=== PATIENT | male | born 1965 | race Caucasian/White ===

== ENCOUNTER 2018-07-23 17:03 | Emergency (ER) | payer OTHER ==
[~2018-07-23] VITALS: Ht 170.2 cm; Wt 69.4 kg
[2018-07-23 17:08] VITALS: Ht 170.2 cm; Wt 69.4 kg
[2018-07-23 18:52] LABS: BASOPHIL % 0.9 % (0-2); PLATELET COUNT 237 x10^3mcL (130-400); RED CELL DISTRIBUTION WIDTH 12.4 % (11.5-14.5)
[2018-07-23 18:54] LABS: CALCIUM 8.3 mg/dL (8.5-10.1); CARBON DIOXIDE 21.2 mmol/L (21-32); CHLORIDE SERUM 110 mmol/L (98-107); CREATININE SERUM 0.9 mg/dL (0.7-1.3); GFR1 > 60 mL/min; GLUCOSE SERUM 115 mg/dL (74-106); SODIUM SERUM 142 mmol/L (136-145)
[2018-07-23 19:10] LABS: ALKALINE PHOSPHATASE 90 U/L (46-116); ALT/SGPT 40 U/L (16-63); AST/SGOT 35 U/L (15-37); BILIRUBIN TOTAL 0.34 mg/dL (0.20-1.00); T4(THYROXINE) 7.9 ug/dL (4.7-13.3); TOTAL PROTEIN, SERUM 7.2 g/dL (6.4-8.2)
[2018-07-23 19:13] LABS: HDL CHOLESTEROL 24 mg/dL (40-60)
[2018-07-23 19:16] LABS: CHOLESTEROL 187 mg/dL (<200)
[2018-07-23 19:30] LABS: microscopic required? NO
[2018-07-23 19:38] LABS: UA SPECIFIC GRAVITY >=1.030 (1.005-1.035); urine erythrocyte NEGATIVE (NEGATIVE)
[2018-07-23 19:49] LABS: AMPHETAMINE QUAL UR NONE DETECTED (See below)
[2018-07-23 21:17] VITALS: BP 111/69
== END 2018-07-23 21:17 | disposition home or self-care (01) ==
LOC: ED 17:03
PROVIDERS: Emergency Medicine
DX: J45.901 Unspecified asthma with (acute) exacerbation (principal); E46 Unspecified protein-calorie malnutrition
CPT/HCPCS: 36415; 36600; 94150; J2930; J7613; J7644

== ENCOUNTER 2018-08-07 16:31 | Emergency (ER) | payer OTHER ==
[~2018-08-07] VITALS: Ht 170.2 cm; Wt 72.1 kg
[2018-08-07 16:36] VITALS: Ht 170.2 cm; Wt 72.1 kg
[2018-08-07 17:51] VITALS: BP 115/75
== END 2018-08-07 17:51 | disposition home or self-care (01) ==
LOC: ED 16:31
DX: J40 Bronchitis, not specified as acute or chronic (principal); J45.909 Unspecified asthma, uncomplicated
CPT/HCPCS: J7613

== ENCOUNTER 2019-01-01 11:59 | Emergency (ER) | payer SELFPAY ==
[~2019-01-01] VITALS: Ht 167.6 cm; Wt 67.6 kg
[2019-01-01 12:11] VITALS: Ht 167.6 cm; Wt 67.6 kg
[2019-01-01 12:59] VITALS: BP 120/75
== END 2019-01-01 12:59 | disposition home or self-care (01) ==
LOC: ED 11:59
DX: J45.909 Unspecified asthma, uncomplicated (principal); F41.9 Anxiety disorder, unspecified
CPT/HCPCS: G0480